=== PATIENT | male | born 1935 | race Caucasian/White ===

== ENCOUNTER 2021-09-17 17:33 | Inpatient (IN) | payer MEDICARE, OTHER ==
[~2021-09-17 17:33] MED LIST: Iopamidol 370 76% 100 ML VIAL ONE
[2021-09-17] MEDS ORDERED: Cefepime 2 GM VIAL ONE (18:01)
[2021-09-17] MEDS ORDERED: Acetaminophen 650 MG Suppository ONE ×2 (18:01→23:46)
[2021-09-17] MEDS ORDERED: Vancomycin 1 GM/200 ML BAG ONE (18:01)
[2021-09-17 18:10] LABS: Actual Bicarbonate (HCO3v) 26 mEq/L (22-28); Analyzer IN Cardio ER; Base Excess 0.1 mEq/L (-2.0 to +3.0); Calcium, Ionized (venous) 1.07 mmol/L (1.16-1.32); Chloride (VBG) 91 mmol/L (98-106); Hemoglobin (Hb) 17.7 g/dL (12.6-17.4); Potassium (VBG) 4.02 mmol/L (3.70-5.30); Sodium 126.1 mmol/L (133-146); pH (venous) 7.38 (7.32-7.43)
[2021-09-17 18:11] LABS: Hemoglobin 10.9 g/dL (14.0-18.0); Mean Corpuscular HGB CONC 34.9 g/dL (32.0-36.0); Mean Corpuscular Hemoglobin 33.4 pg (27.0-31.0); Mean Corpuscular Volume 95.5 fL (78.0-98.0); Mean Platelet Volume 6.3 fL (7.4-10.4); Platelet Count 323 thou/uL (130-400); RBC Distribution Width 12.2 % (11.5-14.5); Red Blood Cell (RBC) Count 3.26 mill/uL (4.70-6.10); White Blood Cell (WBC) Count 9.8 thou/uL (4.8-10.8)
[2021-09-17 18:23] LABS: Acetaminophen Less than 6.0 mcg/mL (10.0-30.0); Alcohol Less than 10 mg/dL (Less than 10); Salicylate Less than 8.0 mg/dL (15.0-30.0)
[2021-09-17 18:24] LABS: ALT (SGPT) 20 U/L (8-55); AST (SGOT) 19 U/L (5-34); Alkaline Phosphatase 86 U/L (40-110); Anion Gap 14 mmol/L (10-20); BUN (Urea Nitrogen) 9 mg/dL (8.4-25.7); Calc. Creatinine Clearance 0 mL/min (70-130); Calcium 9.1 mg/dL (7.8-10.44); Carbon Dioxide 25 mmol/L (23-31); Chloride 92 mmol/L (98-107); Globulin 2.7 g/dL (2.4-3.5); Glucose 106 mg/dL (83-110); Protein, Total 6.7 g/dL (5.8-8.1); Sodium 127 mmol/L (136-145)
[2021-09-17 18:26] LABS: Band 3 % (5-11); Lymphocytes 24 % (21-51); MDiff Complete? YES; Monocytes 6 % (0-10); Neutrophil 60 % (42-75); Platelet Morphology Comment Appears Adequate; Polychromasia SLIGHT = 2-3 cells (100X) (0-2/hpf); Reactive Lymphocytes 7 % (0-10)
[2021-09-17 18:47] LABS: Bacteria/HPF None Seen HPF (None Seen); Bilirubin Negative (Negative); Blood, Urine 1+ (Negative); Clarity Clear (Clear); Glucose, Urine (Dipstick) Normal (Negative); Ketone, Urine Trace mg/dL (Negative); Leukocyte Negative Leu/uL (Negative); Nitrite Negative (Negative); Protein, Urine (Dipstick) 50 mg/dL (Neg-Trace); Squamous Epithelial None Seen HPF (0-3); Urobilinogen Normal mg/dL (Less than 2); WBC/HPF 0-3 HPF (0-3); pH, Urine 5.5 (5.0-9.0)
[2021-09-17 18:50] LABS: Amphetamine Not Detected (NotDetected); Barbiturates Screen Not Detected (NotDetected); Benzodiazepine Screen Detected (NotDetected); Cocaine Metabolite Screen Not Detected (NotDetected); Methadone Not Detected (NotDetected); Methamphetamine Not Detected (NotDetected); Opiate Screen Detected (NotDetected); Oxycodone Screen Not Detected (NotDetected); Phencyclidine (PCP) Not Detected (NotDetected); THC/Cannabinoid Screen Not Detected (NotDetected); Tricyclic Screen Not Detected (NotDetected)
[2021-09-17 20:33] LABS: Color Of CSF Supernatant COLORLESS (Colorless); Tube # 2; Unspun CSF Color COLORLESS (Colorless)
[2021-09-17 20:50] LABS: CSF, Glucose 58 mg/dl (40-70); CSF, Protein 171 mg/dL (15-40)
[2021-09-17] MEDS ORDERED: Ondansetron PF 4 MG/2 ML Vial IVP PRN (20:51)
[2021-09-17] MEDS ORDERED: Acetaminophen 650 MG Suppository PR PRN (20:51)
[2021-09-17] MEDS ORDERED: Ondansetron ODT 4 MG TAB PO PRN (20:51)
[2021-09-17 21:05] LABS: CSF Source CSF; Tube # 4
[2021-09-17 21:06] LABS: Clarity Clear (Clear)
[2021-09-17 21:07] LABS: CSF Source CSF; Clarity Hazy (Clear); Tube # 1
[2021-09-17 21:18] LABS: Cell Count Non Hematic 60 %; Lymphocytes 33 %; Segmented Neutrophils 7 %
[2021-09-17 21:19] LABS: Cell Count Non Hematic 67 %; Lymphocytes 30 %; Segmented Neutrophils 3 %
[2021-09-17 21:22] LABS: Actual Bicarbonate (HCO3a) 25.5 mEq/L (22-28); Analyzer IN Cardio ER; Calcium, Ionized (arterial) 1.18 mmol/L (1.12-1.30); Carboxyhemoglobin (COHb) 0.3 gm% (0.0-3.0); Hemoglobin (Hb) 11.7 g/dL (14.0-18.0); O2 Tension (PaO2), arterial 87.1 mmHg (> 60.0); Potassium - ABG Lab 3.78 mmol/L (3.70-5.30); pH, Arterial 7.37 (7.35-7.45)
[2021-09-17 21:24] LABS: Puncture Site RRA
[2021-09-17] MEDS ORDERED: Pantoprazole 40 MG VIAL IVP SCH (22:00)
[2021-09-17] MEDS: metroNIDAZOLE 500 MG in Premix Bag 1 BAG IVPB SCH (22:27)
[2021-09-17 23:47] LABS: SARS-CoV-2 NAA Rapid Test Not Detected (NotDetected)
[2021-09-18] MEDS: Acetaminophen 325 MG TAB PO PRN ×2 (00:21→18:50)
[2021-09-18] MEDS ORDERED: Magnesium 2 GM/50 ML 2 GM in Premix Bag 1 BAG IVPB SCH ×2 (01:00→05:00)
[2021-09-18] MEDS ORDERED: Magnesium 2 GM/50 ML BAG (IN WATER) ONE ×2 (01:09→04:58)
[2021-09-18 01:43] LABS: Troponin I 0.082 ng/mL (< 0.028)
[2021-09-18 02:27] LABS: ALT (SGPT) 20 U/L (8-55); AST (SGOT) 17 U/L (5-34); Albumin 3.5 g/dL (3.4-4.8); Alkaline Phosphatase 73 U/L (40-110); Anion Gap 15 mmol/L (10-20); BUN (Urea Nitrogen) 9 mg/dL (8.4-25.7); Bilirubin, Total 0.7 mg/dL (0.2-1.2); Calc. Creatinine Clearance 0 mL/min (70-130); Calcium 8.9 mg/dL (7.8-10.44); Carbon Dioxide 21 mmol/L (23-31); Chloride 95 mmol/L (98-107); Globulin 2.6 g/dL (2.4-3.5); Glucose 102 mg/dL (83-110); Magnesium 1.4 mg/dL (1.6-2.6); Potassium 3.9 mmol/L (3.5-5.1); Protein, Total 6.1 g/dL (5.8-8.1); Sodium 127 mmol/L (136-145)
[2021-09-18] MEDS ORDERED: Electrolyte Replacement Protocol 1 EACH FS PRN (05:00)
[2021-09-18] MEDS ORDERED: VANCOMYCIN 1.25 GM/250 ML BAG 1.25 GM in Premix Bag 1 BAG IVPB SCH (06:00)
[2021-09-18 06:14] LABS: #Basophils 0.1 thou/uL (0.0-0.2); #Eosinphils 0.1 thou/uL (0.0-0.7); #Lymphocytes 2.5 thou/uL (1.20-3.40); #Monocytes 1.1 thou/uL (0.11-0.59); #Neutrophils 5.3 thou/uL (1.40-6.50); %Basophils 0.8 % (0.0-1.0); %Eosinophils 0.7 % (0.0-10.0); %Lymphocytes 27.6 % (21.0-51.0); %Monocytes 12.2 % (0.0-10.0); %Neutrophils 58.6 % (42.0-75.0); Hemoglobin 13.3 g/dL (14.0-18.0); Mean Corpuscular HGB CONC 34.3 g/dL (32.0-36.0); Mean Corpuscular Hemoglobin 32.4 pg (27.0-31.0); Mean Corpuscular Volume 94.5 fL (78.0-98.0); Mean Platelet Volume 6.6 fL (7.4-10.4); Platelet Count 271 thou/uL (130-400); RBC Distribution Width 12.3 % (11.5-14.5)
[2021-09-18 06:26] LABS: Anion Gap 19 mmol/L (10-20); BUN (Urea Nitrogen) 9 mg/dL (8.4-25.7); Calc. Creatinine Clearance 102 mL/min (70-130); Calcium 9.2 mg/dL (7.8-10.44); Carbon Dioxide 18 mmol/L (23-31); Chloride 95 mmol/L (98-107); Glucose 88 mg/dL (83-110); Potassium 4.3 mmol/L (3.5-5.1); Sodium 128 mmol/L (136-145)
[2021-09-18 08:58] LABS: Troponin I 0.109 ng/mL (< 0.028)
[2021-09-18] MEDS ORDERED: Pantoprazole 40 MG VIAL IVP SCH (09:00)
[2021-09-18] MEDS: Sodium Chloride 0.9% 1,000 ML IV SCH ×3 (09:17→21:06)
[2021-09-18] MEDS ORDERED: Cefepime 2 GM VIAL ONE (09:21)
[2021-09-18] MEDS: Cefepime 2 GM in Sodium Chloride 0.9% 100 ML IVPB SCH ×2 (09:27→17:33)
[2021-09-18] MEDS ORDERED: Enoxaparin Sodium 40 MG/0.4 ML SYRINGE ONE (09:30)
[2021-09-18] MEDS ORDERED: Pantoprazole 40 MG VIAL ONE (09:30)
[2021-09-18] MEDS: metroNIDAZOLE 500 MG in Premix Bag 1 BAG IVPB SCH ×3 (09:50→21:11)
[2021-09-18] MEDS: Enoxaparin Sodium 40 MG/0.4 ML SYRINGE SC SCH (09:51)
[2021-09-18] MEDS ORDERED: Vancomycin 1 GM/200 ML BAG ONE (11:16)
[2021-09-18] MEDS: Vancomycin 1 GM in Premix Bag 1 BAG IVPB SCH ×2 (11:20→17:33)
[2021-09-18] MEDS ORDERED: Aspirin 325 mg Enteric Coated Tablet PO SCH (11:30)
[2021-09-18 12:26] LABS: Troponin I 0.119 ng/mL (< 0.028)
[2021-09-18 13:56] LABS: Cardiac Risk 3.3 (Less than 4.5)
[2021-09-18 14:33] VITALS: BMI 34.8
[2021-09-18 16:09] LABS: Troponin I 0.109 ng/mL (< 0.028)
[2021-09-18] MEDS ORDERED: Mag-Al Plus 1200 MG/1200 MG/120 MG/30 ML UDCUP PO PRN (17:22)
[2021-09-18] MEDS: Gabapentin 300 MG CAP PO SCH (21:06)
[2021-09-18] MEDS: HYDROcodone/Acetaminophen 5/325 mg Tablet PO PRN (21:07)
[2021-09-18] MEDS ORDERED: Morphine 2 MG/ML VIAL SLOW IVP PRN (22:56)
[2021-09-18] MEDS ORDERED: Morphine 4 MG/ML VIAL SLOW IVP PRN (23:13)
[2021-09-19] MEDS: Sodium Chloride 0.9% 1,000 ML IV SCH ×2 (04:29→15:12)
[2021-09-19] MEDS: Cefepime 2 GM in Sodium Chloride 0.9% 100 ML IVPB SCH (04:30)
[2021-09-19] MEDS: metroNIDAZOLE 500 MG in Premix Bag 1 BAG IVPB SCH ×2 (05:00→16:52)
[2021-09-19 05:07] LABS: Anion Gap 10 mmol/L (10-20); BUN (Urea Nitrogen) 10 mg/dL (8.4-25.7); Calc. Creatinine Clearance 104 mL/min (70-130); Carbon Dioxide 28 mmol/L (23-31); Chloride 96 mmol/L (98-107); Glucose 85 mg/dL (83-110); Magnesium 1.8 mg/dL (1.6-2.6); Potassium 3.9 mmol/L (3.5-5.1); Sodium 130 mmol/L (136-145)
[2021-09-19 05:18] LABS: Vancomycin, Trough 14.6 ug/mL
[2021-09-19] MEDS ORDERED: Magnesium 2 GM/50 ML 2 GM in Premix Bag 1 BAG IVPB SCH (05:30)
[2021-09-19] MEDS: Vancomycin 1 GM in Premix Bag 1 BAG IVPB SCH (06:15)
[2021-09-19] MEDS: HYDROcodone/Acetaminophen 5/325 mg Tablet PO PRN (06:29)
[2021-09-19] MEDS: Gabapentin 300 MG CAP PO SCH ×2 (09:06→21:40)
[2021-09-19] MEDS: Amlodipine 5 MG TAB PO SCH (09:08)
[2021-09-19] MEDS: Saccharomyces boulardii 250 MG CAP PO SCH (09:08)
[2021-09-19] MEDS: Tamsulosin HCl 0.4 MG CAP PO SCH (09:08)
[2021-09-19] MEDS: Allopurinol 300 MG TAB PO SCH (09:08)
[2021-09-19] MEDS: Enoxaparin Sodium 40 MG/0.4 ML SYRINGE SC SCH (09:09)
[2021-09-19] MEDS: Aspirin 325 mg Enteric Coated Tablet PO SCH (09:09)
[2021-09-19] MEDS ORDERED: OLANZapine 10 MG VIAL IM SCH (21:45)
[2021-09-20] MEDS ORDERED: Ziprasidone 20 MG VIAL IM SCH (01:00)
[2021-09-20] MEDS: Sodium Chloride 0.9% 1,000 ML IV SCH ×2 (02:26→18:30)
[2021-09-20 07:07] LABS: Anion Gap 14 mmol/L (10-20); BUN (Urea Nitrogen) 9 mg/dL (8.4-25.7); Calc. Creatinine Clearance 115 mL/min (70-130); Calcium 9.6 mg/dL (7.8-10.44); Carbon Dioxide 24 mmol/L (23-31); Chloride 94 mmol/L (98-107); Glucose 120 mg/dL (83-110); Potassium 3.4 mmol/L (3.5-5.1); Sodium 129 mmol/L (136-145)
[2021-09-20] MEDS ORDERED: Potassium Chloride 20 MEQ TAB PO SCH (08:00)
[2021-09-20] MEDS ORDERED: Iopamidol 370 76% 100 ML VIAL ONE (09:36)
[2021-09-20] MEDS: Gabapentin 300 MG CAP PO SCH ×2 (09:46→21:29)
[2021-09-20] MEDS: Aspirin 325 mg Enteric Coated Tablet PO SCH (09:46)
[2021-09-20] MEDS: Tamsulosin HCl 0.4 MG CAP PO SCH (09:46)
[2021-09-20] MEDS: Allopurinol 300 MG TAB PO SCH (09:46)
[2021-09-20] MEDS: Saccharomyces boulardii 250 MG CAP PO SCH (09:47)
[2021-09-20] MEDS: Amlodipine 5 MG TAB PO SCH (09:47)
[2021-09-20] MEDS: Enoxaparin Sodium 40 MG/0.4 ML SYRINGE SC SCH (10:41)
[2021-09-20] MEDS ORDERED: Sodium Chloride 0.9% 1,000 ML IV SCH (17:45)
[2021-09-20 18:29] LABS: Bacteria/HPF None Seen HPF (None Seen); Bilirubin Negative (Negative); Blood, Urine 3+ (Negative); Clarity Clear (Clear); Glucose, Urine (Dipstick) Normal (Negative); Ketone, Urine 10 mg/dL (Negative); Leukocyte Negative Leu/uL (Negative); Nitrite Negative (Negative); Protein, Urine (Dipstick) 30 mg/dL (Neg-Trace); RBC/HPF Greater than 50 HPF (0-3); Squamous Epithelial None Seen HPF (0-3); Urobilinogen Normal mg/dL (Less than 2); pH, Urine 6.5 (5.0-9.0)
[2021-09-20] MEDS ORDERED: Atorvastatin Calcium 20 MG TAB PO SCH (21:00)
[2021-09-20 21:18] LABS: Actual Bicarbonate (HCO3a) 30.1 mEq/L (22-28); Base Excess (BEa) 6.1 mEq/L (-2.0 to +3.0); CO2 Tension 41.6 mmHg (35.0-45.0); Calcium, Ionized (arterial) 1.19 mmol/L (1.12-1.30); Carboxyhemoglobin (COHb) 0.6 gm% (0.0-3.0); Hemoglobin (Hb) 11.5 g/dL (14.0-18.0); O2 Tension (PaO2), arterial 67.6 mmHg (> 60.0); Potassium - ABG Lab 3.78 mmol/L (3.70-5.30); pH, Arterial 7.48 (7.35-7.45)
[2021-09-20 21:20] LABS: Puncture Site RRA
[2021-09-20 22:41] LABS: Calcium 9.1 mg/dL (7.8-10.44); Chloride 103 mmol/L (98-107); Glucose 78 mg/dL (83-110); Potassium 4.9 mmol/L (3.5-5.1); Sodium 134 mmol/L (136-145)
[2021-09-20 22:43] LABS: Anion Gap 21 mmol/L (10-20); Carbon Dioxide 15 mmol/L (23-31)
[2021-09-20 22:45] LABS: Calc. Creatinine Clearance 109 mL/min (70-130)
[2021-09-20 22:46] LABS: BUN (Urea Nitrogen) 10 mg/dL (8.4-25.7)
[2021-09-21] MEDS ORDERED: hydrALAZINE 20 MG/ML VIAL SLOW IVP PRN (04:45)
[2021-09-21 05:37] LABS: #Eosinphils 0.3 thou/uL (0.0-0.7); #Lymphocytes 1.4 thou/uL (1.20-3.40); #Monocytes 0.9 thou/uL (0.11-0.59); #Neutrophils 4.6 thou/uL (1.40-6.50); %Basophils 0.6 % (0.0-1.0); %Eosinophils 3.6 % (0.0-10.0); %Lymphocytes 19.2 % (21.0-51.0); %Monocytes 11.9 % (0.0-10.0); %Neutrophils 64.7 % (42.0-75.0); Hemoglobin 11.6 g/dL (14.0-18.0); Mean Corpuscular HGB CONC 32.1 g/dL (32.0-36.0); Mean Corpuscular Hemoglobin 30.6 pg (27.0-31.0); Mean Corpuscular Volume 95.3 fL (78.0-98.0); Platelet Count 353 thou/uL (130-400); RBC Distribution Width 12.4 % (11.5-14.5); Red Blood Cell (RBC) Count 3.79 mill/uL (4.70-6.10); White Blood Cell (WBC) Count 7.2 thou/uL (4.8-10.8)
[2021-09-21 05:54] LABS: Anion Gap 11 mmol/L (10-20); BUN (Urea Nitrogen) 10 mg/dL (8.4-25.7); Calc. Creatinine Clearance 111 mL/min (70-130); Carbon Dioxide 27 mmol/L (23-31); Chloride 100 mmol/L (98-107); Glucose 105 mg/dL (83-110); Potassium 3.6 mmol/L (3.5-5.1); Sodium 134 mmol/L (136-145)
[2021-09-21] MEDS: Saccharomyces boulardii 250 MG CAP PO SCH (07:39)
[2021-09-21] MEDS: Tamsulosin HCl 0.4 MG CAP PO SCH (07:39)
[2021-09-21] MEDS: Amlodipine 5 MG TAB PO SCH (07:40)
[2021-09-21] MEDS: Allopurinol 300 MG TAB PO SCH (07:40)
[2021-09-21] MEDS: Aspirin 325 mg Enteric Coated Tablet PO SCH (07:40)
[2021-09-21] MEDS: Enoxaparin Sodium 40 MG/0.4 ML SYRINGE SC SCH (07:40)
[2021-09-21] MEDS: Gabapentin 300 MG CAP PO SCH (07:41)
[2021-09-21] MEDS ORDERED: Losartan 25 MG TAB PO SCH (09:00)
[2021-09-21 15:11] VITALS: BP 155/78; TEMP 98.7
== END 2021-09-21 16:07 | disposition home health service (06) | DRG 871 ==
LOC: ERS 17:33 → ERHOLD 20:16 → NEURO 09-18 12:59
PROVIDERS: ADMIT Student in an Organized Health Care Education/Training Program; ATTEND Internal Medicine
PROC: 009U3ZX Drainage of Spinal Canal, Percutaneous Approach, Diagnostic (ICD-10-PCS; principal; 2021-09-17)
DX: A41.9 Sepsis, unspecified organism (principal); G93.41 Metabolic encephalopathy; E87.1 Hypo-osmolality and hyponatremia; N39.0 Urinary tract infection, site not specified; Z20.822 Contact with and (suspected) exposure to COVID-19; M10.9 Gout, unspecified; K21.9 Gastro-esophageal reflux disease without esophagitis; I10 Essential (primary) hypertension; N40.0 Benign prostatic hyperplasia without lower urinary tract symptoms; E78.5 Hyperlipidemia, unspecified; I65.29 Occlusion and stenosis of unspecified carotid artery; G89.29 Other chronic pain; M54.9 Dorsalgia, unspecified; G62.9 Polyneuropathy, unspecified; Z96.653 Presence of artificial knee joint, bilateral; Z96.612 Presence of left artificial shoulder joint; T40.2X1A Poisoning by other opioids, accidental (unintentional), initial encounter; E78.00 Pure hypercholesterolemia, unspecified; E83.42 Hypomagnesemia; E66.9 Obesity, unspecified; N40.1 Benign prostatic hyperplasia with lower urinary tract symptoms; R33.8 Other retention of urine; Z87.440 Personal history of urinary (tract) infections; Z79.899 Other long term (current) drug therapy; Z79.82 Long term (current) use of aspirin; Z68.34 Body mass index [BMI] 34.0-34.9, adult
CPT/HCPCS: 36415; 36416; 36600; 51701; 62270; 70450; 70498; 70551; 71045; 74177; 80048; 80053; 80061; 80202; 80306; 80307; 81001; 81003; 81015; 82805; 82945; 83605; 83735; 83930; 83935; 84157; 84300; 84443; 84484; 85025; 85060; 87040; 87070; 87086; 87205; 88184; 89051; 93005; 93010; 93306; 93880; 95816; 95819; 95957; 96365; 96375; C9113; J0692; J1650; J2270; J2358; J3370; J3475; J3486; J3490; J7050; Q9967; U0002

== ENCOUNTER 2022-02-27 10:40 | Outpatient (CLI) | payer MEDICARE, OTHER ==
[2022-02-27 12:13] LABS: Hemoglobin 12.1 g/dL (13.5-17.5); Mean Corpuscular HGB CONC 32.8 g/dL (32.0-36.0); Mean Corpuscular Volume 88.5 fl (81.2-95.1); Platelet Count 303 10x3/uL (150-450); RBC Distribution Width 13.5 % (11.5-14.5); Red Blood Cell (RBC) Count 4.17 10x6/uL (4.32-5.72); White Blood Cell (WBC) Count 7.7 10x3/uL (3.5-10.5)
[2022-02-27 12:34] LABS: PTT 28.9 sec (22.0-33.0)
== END 2022-02-27 10:41 | disposition home or self-care (01) ==
LOC: LABBT 10:40
PROVIDERS: ATTEND Neurological Surgery
DX: Z01.818 Encounter for other preprocedural examination (principal); G54.2 Cervical root disorders, not elsewhere classified; M48.061 Spinal stenosis, lumbar region without neurogenic claudication; Z20.822 Contact with and (suspected) exposure to COVID-19
CPT/HCPCS: 85027; 85610; 85730; 87811; 93005; 93010

== ENCOUNTER 2022-03-02 05:39 | Observation (INO) | payer MEDICARE, OTHER ==
[2022-03-02] MEDS ORDERED: fentaNYL Citrate/PF 100 MCG/2 ML SYRINGE ONE ×4 (06:12→15:34)
[2022-03-02] MEDS ORDERED: Dexmedetomidine 200 MCG/2 ML VIAL ONE (06:13)
[2022-03-02] MEDS ORDERED: Ketamine 50 MG/ML (10ML VIAL) ONE (06:13)
[2022-03-02] MEDS ORDERED: Albumin 5% 500 ML ONE (06:13)
[2022-03-02] MEDS ORDERED: Bupivacaine PF 0.5% 30 ML VIAL ONE (06:17)
[2022-03-02] MEDS ORDERED: EPINEPHrine 1 MG/ML AMP ONE (06:17)
[2022-03-02] MEDS ORDERED: Thrombin 5000 UNITS/5 ML VIAL ONE (06:17)
[2022-03-02] MEDS ORDERED: Cyclobenzaprine 10 MG TAB PO PRN (06:39)
[2022-03-02] MEDS ORDERED: Acetaminophen/Codeine 30-300mg Tablet PO PRN (06:39)
[2022-03-02] MEDS ORDERED: diphenhydrAMINE 50 MG/ML VIAL IVP PRN (06:39)
[2022-03-02] MEDS ORDERED: Ondansetron PF 4 MG/2 ML Vial IVP PRN (06:39)
[2022-03-02] MEDS ORDERED: Acetaminophen 325 MG TAB PO PRN (06:39)
[2022-03-02] MEDS ORDERED: Morphine 2 MG/ML VIAL SLOW IVP PRN (06:39)
[2022-03-02] MEDS ORDERED: Milk Of Magnesia 30 ML UDCUP PO PRN (06:39)
[2022-03-02] MEDS ORDERED: HYDROcodone/Acetaminophen 10/325 mg Tablet PO PRN (06:39)
[2022-03-02] MEDS ORDERED: ceFAZolin 2 GM/Dextrose 50 ML 2 GM in Premix Bag 1 BAG IVPB SCH (06:45)
[2022-03-02] MEDS ORDERED: CEFAZOLIN 2 GM VIAL ONE (06:50)
[2022-03-02] MEDS ORDERED: Sodium Chloride 0.9% 100 ML ONE (06:50)
[2022-03-02] MEDS ORDERED: Phenylephrine 10 MG/ML VIAL ONE (07:13)
[2022-03-02] MEDS ORDERED: Glycopyrrolate 0.2 MG/ML 5 ML SYRINGE ONE (07:13)
[2022-03-02] MEDS ORDERED: Rocuronium Bromide 10 MG/ML (10ML VIAL) ONE (07:13)
[2022-03-02] MEDS ORDERED: Lidocaine 1% PF 5 ML VIAL ONE (07:13)
[2022-03-02] MEDS ORDERED: Dexamethasone 20 MG/5 ML VIAL ONE (07:13)
[2022-03-02] MEDS ORDERED: Vecuronium 10 MG VIAL ONE ×2 (07:13→09:23)
[2022-03-02] MEDS ORDERED: PROPOFOL 200 MG/20 ML VIAL ONE (07:13)
[2022-03-02] MEDS ORDERED: Ondansetron PF 4 MG/2 ML Vial ONE (07:13)
[2022-03-02] MEDS ORDERED: ePHEDrine 50 MG/ML VIAL ONE (07:13)
[2022-03-02] MEDS ORDERED: Metoclopramide HCl 10 MG/2 ML VIAL ONE (07:13)
[2022-03-02] MEDS ORDERED: Gabapentin 300 MG CAP PO SCH ×2 (09:00→21:00)
[2022-03-02] MEDS ORDERED: Non-Formulary Item 1 EACH (Losartan Potassium [Cozaar] 50 MG Tab) PO SCH (09:00)
[2022-03-02] MEDS ORDERED: Amlodipine 5 MG TAB PO SCH (09:00)
[2022-03-02] MEDS ORDERED: Non-Formulary Item 1 EACH (Esomeprazole Magnesium [Nexium] 20 MG Capsule.Dr) PO SCH (09:00)
[2022-03-02] MEDS ORDERED: Neomycin-Polymyxin 1 ML AMP ONE (12:25)
[2022-03-02] MEDS ORDERED: Promethazine HCl 25 MG/ML VIAL IM PRN (14:59)
[2022-03-02] MEDS ORDERED: Promethazine HCl 25 MG/ML VIAL IVPB PRN (14:59)
[2022-03-02] MEDS ORDERED: Morphine Sulfate 2 MG/ML SYRINGE SLOW IVP PRN (14:59)
[2022-03-02] MEDS ORDERED: Ondansetron HCl/PF 4 MG/2 ML Vial IVP PRN (14:59)
[2022-03-02] MEDS ORDERED: HYDROmorphone 2 MG/ML VIAL SLOW IVP PRN (14:59)
[2022-03-02] MEDS ORDERED: PACU-Morphine 4MG/ML VIAL SLOW IVP PRN (14:59)
[2022-03-02] MEDS ORDERED: CEFAZOLIN 1 GM VIAL ONE (15:12)
[2022-03-02] MEDS ORDERED: Bacitracin Zinc Ointment 30 gm TUBE ONE (15:16)
[2022-03-02 17:18] VITALS: BMI 34.9
[2022-03-02] MEDS: Sodium Chloride 0.9% 1,000 ML IV SCH ×2 (18:13→22:13)
[2022-03-02] MEDS: Gabapentin 300 MG CAP PO SCH ×3 (19:37→22:29)
[2022-03-02] MEDS: Amlodipine 10 MG TAB PO SCH (19:37)
[2022-03-02] MEDS: Losartan 25 MG TAB PO SCH (19:38)
[2022-03-02] MEDS: CEFAZOLIN 2 GM in Sodium Chloride 0.9% 100 ML IVPB SCH ×2 (19:39→22:29)
[2022-03-02] MEDS: Mag-Al 1200 mg/1200 mg/30 ML UDCUP PO PRN (20:41)
[2022-03-02] MEDS ORDERED: Atorvastatin Calcium 20 MG TAB PO SCH (21:00)
[2022-03-02] MEDS ORDERED: Simvastatin 40 MG TAB PO SCH (21:00)
[2022-03-02] MEDS: HYDROcodone/Acetaminophen 7.5/325 mg Tablet PO PRN (22:32)
[2022-03-03] MEDS: HYDROcodone/Acetaminophen 7.5/325 mg Tablet PO PRN ×3 (03:48→17:55)
[2022-03-03] MEDS ORDERED: Tamsulosin HCl 0.4 MG CAP PO SCH (06:00)
[2022-03-03] MEDS: Losartan 25 MG TAB PO SCH (08:36)
[2022-03-03] MEDS: Gabapentin 300 MG CAP PO SCH ×2 (08:37→14:52)
[2022-03-03] MEDS: Amlodipine 10 MG TAB PO SCH (08:39)
[2022-03-03] MEDS: Mag-Al 1200 mg/1200 mg/30 ML UDCUP PO PRN (10:46)
[2022-03-03] MEDS: Sodium Chloride 0.9% 1,000 ML IV SCH (11:34)
[2022-03-03] MEDS ORDERED: CEFAZOLIN 2 GM in Sodium Chloride 0.9% 100 ML IVPB SCH (14:00)
[2022-03-03] MEDS ORDERED: Bisacodyl 10 MG SUPP PR SCH (15:30)
[2022-03-03 16:20] VITALS: BP 129/70; TEMP 97.9
[2022-03-07 11:03] LABS: Actual Bicarbonate (HCO3a) 23.1 mEq/L (22-28); Analyzer IN Cardio OR; CO2 Tension 36.3 mmHg (35.0-45.0); Carboxyhemoglobin (COHb) 0.5 gm% (0.0-3.0); Hemoglobin (Hb) 11.5 g/dL (14.0-18.0); O2 Tension (PaO2), arterial 193.4 mmHg (> 60.0); Potassium - ABG Lab 3.72 mmol/L (3.70-5.30); Puncture Site Arterial Line; pH, Arterial 7.42 (7.35-7.45)
== END 2022-03-03 18:45 | disposition home or self-care (01) ==
LOC: SDC 05:39 → SURG A 17:08
PROVIDERS: ADMIT Neurological Surgery; ATTEND Neurological Surgery
PROC: 01NB0ZZ Release Lumbar Nerve, Open Approach (ICD-10-PCS; principal; 2022-03-02)
PROC: 0SG00AJ Fusion of Lumbar Vertebral Joint with Interbody Fusion Device, Posterior Approach, Anterior Column, Open Approach (ICD-10-PCS; 2022-03-02)
PROC: 0SG30AJ Fusion of Lumbosacral Joint with Interbody Fusion Device, Posterior Approach, Anterior Column, Open Approach (ICD-10-PCS; 2022-03-02)
DX: M48.062 Spinal stenosis, lumbar region with neurogenic claudication (principal); M48.07 Spinal stenosis, lumbosacral region; M43.16 Spondylolisthesis, lumbar region; M43.17 Spondylolisthesis, lumbosacral region; E78.00 Pure hypercholesterolemia, unspecified; M10.9 Gout, unspecified; I10 Essential (primary) hypertension; Z79.82 Long term (current) use of aspirin; Z79.899 Other long term (current) drug therapy
CPT/HCPCS: 20930; 20936; 22633; 22634; 22842; 22853 ×2; 63047; 63048; 76000; 97110; 97116 ×2; 97530 ×2; C1713 ×2; C1768; C1776 ×2; J2270; P9045; 82805; J0171; J0690; J1100; J2370; J2405; J2704; J2710; J2765; J3370; J3490; J7050; S0020

== ENCOUNTER 2022-03-05 21:09 | Emergency (ER) | payer MEDICARE, OTHER ==
[2022-03-05 22:10] LABS: Bacteria/HPF 1+ HPF (None Seen); Bilirubin Negative (Negative); Blood, Urine Trace (Negative); Clarity Turbid (Clear); Glucose, Urine (Dipstick) Normal (Negative); Ketone, Urine Negative (Negative); Leukocyte 75 Leu/uL (Negative); Nitrite Negative (Negative); Protein, Urine (Dipstick) 50 mg/dL (Neg-Trace); Specific Gravity, Urine 1.022 (1.002-1.036); Squamous Epithelial 0-3 HPF (0-3); Urobilinogen Normal mg/dL (Less than 2); pH, Urine 5.5 (5.0-9.0)
[2022-03-05 22:22] LABS: ALT (SGPT) 20 U/L (8-55); AST (SGOT) 48 U/L (5-34); Albumin 3.4 g/dL (3.4-4.8); Alkaline Phosphatase 86 U/L (40-110); Anion Gap 16 mmol/L (10-20); BUN (Urea Nitrogen) 24 mg/dL (8.4-25.7); Bilirubin, Total 1.4 mg/dL (0.2-1.2); Calc. Creatinine Clearance 0 mL/min (70-130); Calcium 8.3 mg/dL (7.8-10.44); Carbon Dioxide 19 mmol/L (23-31); Chloride 95 mmol/L (98-107); Estimated GFR 50; Globulin 3.3 g/dL (2.4-3.5); Glucose 119 mg/dL (83-110); Lipase 12 U/L (8-78); Protein, Total 6.7 g/dL (5.8-8.1); Sodium 125 mmol/L (136-145)
[2022-03-05 22:49] LABS: #Basophils 0.1 thou/uL (0.0-0.2); #Eosinphils 0.1 thou/uL (0.0-0.7); #Lymphocytes 4.1 thou/uL (1.20-3.40); #Monocytes 2.3 thou/uL (0.11-0.59); #Neutrophils 9.7 thou/uL (1.40-6.50); %Basophils 0.5 % (0.0-1.0); %Eosinophils 0.7 % (0.0-10.0); %Lymphocytes 25.2 % (21.0-51.0); %Monocytes 13.9 % (0.0-10.0); %Neutrophils 59.7 % (42.0-75.0); Hemoglobin 8.4 g/dL (14.0-18.0); Mean Corpuscular HGB CONC 32.9 g/dL (32.0-36.0); Mean Corpuscular Hemoglobin 30.8 pg (27.0-31.0); Mean Corpuscular Volume 93.6 fL (78.0-98.0); Mean Platelet Volume 7.7 fL (7.4-10.4); Platelet Count 272 thou/uL (130-400); RBC Distribution Width 12.8 % (11.5-14.5); Red Blood Cell (RBC) Count 2.73 mill/uL (4.70-6.10); White Blood Cell (WBC) Count 16.2 thou/uL (4.8-10.8)
== END 2022-03-05 23:51 | disposition home or self-care (01) ==
LOC: ERS 21:09
DX: E87.1 Hypo-osmolality and hyponatremia (principal); N39.0 Urinary tract infection, site not specified; K21.9 Gastro-esophageal reflux disease without esophagitis; E78.00 Pure hypercholesterolemia, unspecified; I10 Essential (primary) hypertension; N40.0 Benign prostatic hyperplasia without lower urinary tract symptoms; Z79.899 Other long term (current) drug therapy
CPT/HCPCS: 36415; 70450; 71045; 80053; 81003; 81015; 83605; 83690; 83880; 84484; 85025; 87086; 93005

== ENCOUNTER 2022-07-05 10:30 | Day surgery (SDC) | payer MEDICARE, OTHER ==
[2022-07-04 15:35] VITALS: BMI 32.5
[2022-07-05] MEDS ORDERED: Neomycin-Polymyxin 1 ML AMP ONE (11:26)
[2022-07-05] MEDS ORDERED: Thrombin 5000 UNITS/5 ML VIAL ONE (11:26)
[2022-07-05] MEDS ORDERED: Sodium Chloride 0.9% 100 ML ONE (11:33)
[2022-07-05] MEDS ORDERED: CEFAZOLIN 2 GM VIAL ONE (11:33)
[2022-07-05] MEDS ORDERED: fentaNYL PF 100 MCG/2 ML SYRINGE ONE (11:44)
[2022-07-05 12:23] LABS: PTT 38.3 sec (22.9-36.1); Prothrombin Time 13.5 sec (12.0-14.7)
[2022-07-05] MEDS ORDERED: Rocuronium Bromide 10 MG/ML (10ML VIAL) ONE (12:28)
[2022-07-05] MEDS ORDERED: Glycopyrrolate 0.2 MG/ML 5 ML SYRINGE ONE (12:28)
[2022-07-05] MEDS ORDERED: Dexamethasone 20 MG/5 ML VIAL ONE (12:28)
[2022-07-05] MEDS ORDERED: PROPOFOL 200 MG/20 ML VIAL ONE (12:28)
[2022-07-05] MEDS ORDERED: NEOSTIGMINE 3 MG/3 ML SYR 3 MG/3 ML SYRINGE ONE (12:28)
[2022-07-05] MEDS ORDERED: Ondansetron PF 4 MG/2 ML Vial ONE ×2 (12:28→15:40)
[2022-07-05] MEDS ORDERED: Tamsulosin HCl 0.4 MG CAP ONE (14:58)
[2022-07-05] MEDS ORDERED: FENTANYL 50 MCG/ML 1 ML VIAL ONE (15:06)
[2022-07-05] MEDS ORDERED: Morphine 4 MG/ML VIAL SLOW IVP PRN ×2 (16:21→16:30)
[2022-07-05] MEDS ORDERED: Prochlorperazine 10 MG/2 ML VIAL IM PRN (16:30)
[2022-07-05] MEDS ORDERED: diphenhydrAMINE 50 MG/ML VIAL IVP PRN (16:30)
[2022-07-05] MEDS ORDERED: HYDROcodone/Acetaminophen 7.5/325 mg Tablet PO PRN ×2 (16:30)
[2022-07-05] MEDS ORDERED: Morphine 2 MG/ML VIAL SLOW IVP PRN (16:30)
[2022-07-05] MEDS ORDERED: Sodium Chloride 0.9% 1,000 ML IV SCH (16:30)
[2022-07-05] MEDS ORDERED: Milk Of Magnesia 30 ML UDCUP PO PRN (16:30)
[2022-07-05] MEDS ORDERED: Ondansetron PF 4 MG/2 ML Vial IVP PRN (16:30)
[2022-07-05] MEDS ORDERED: diphenhydrAMINE 25 MG CAP PO PRN (16:30)
[2022-07-05] MEDS ORDERED: Mag-Al 1200 mg/1200 mg/30 ML UDCUP PO PRN (16:30)
[2022-07-06] MEDS ORDERED: Tamsulosin HCl 0.4 MG CAP PO SCH (06:00)
== END 2022-07-05 16:50 | disposition home or self-care (01) ==
LOC: SDC 10:30
PROVIDERS: ATTEND Neurological Surgery
PROC: 0RG10A0 Fusion of Cervical Vertebral Joint with Interbody Fusion Device, Anterior Approach, Anterior Column, Open Approach (ICD-10-PCS; principal; 2022-07-05)
DX: M48.02 Spinal stenosis, cervical region (principal); M50.021 Cervical disc disorder at C4-C5 level with myelopathy; M43.12 Spondylolisthesis, cervical region; E78.00 Pure hypercholesterolemia, unspecified; M10.9 Gout, unspecified; I10 Essential (primary) hypertension; Z79.899 Other long term (current) drug therapy; Z96.612 Presence of left artificial shoulder joint; Z96.653 Presence of artificial knee joint, bilateral; Z98.1 Arthrodesis status
CPT/HCPCS: 20930; 20936; 22551; 22845; 22853; 85610; 85730; J3010; C1713; J1100; J2405; J2704; J3490

== ENCOUNTER 2022-07-28 20:49 | Emergency (ER) | payer MEDICARE, OTHER ==
[~2022-07-28 20:49] MED LIST changes: -Iopamidol 370 76% 100 ML VIAL ONE; +Iopamidol-370 76% 500 ML 1 ML ONE
[2022-07-28 21:27] LABS: Bacteria/HPF None Seen HPF (None Seen); Bilirubin Negative (Negative); Blood, Urine Negative (Negative); Clarity Clear (Clear); Glucose, Urine (Dipstick) Normal (Negative); Ketone, Urine Negative (Negative); Leukocyte Negative Leu/uL (Negative); Nitrite Negative (Negative); Protein, Urine (Dipstick) 30 mg/dL (Neg-Trace); Specific Gravity, Urine 1.025 (1.002-1.036); Squamous Epithelial None Seen HPF (0-3); Urobilinogen Normal mg/dL (Less than 2); WBC/HPF 0-3 HPF (0-3)
[2022-07-28] MEDS ORDERED: cefTRIAXone\\ROCEPHIN 2 GM VIAL ONE (21:36)
[2022-07-28 21:46] LABS: #Lymphocytes 3.7 thou/uL (1.20-3.40); #Monocytes 0.9 thou/uL (0.11-0.59); #Neutrophils 5.4 thou/uL (1.40-6.50); %Basophils 0.2 % (0.0-1.0); %Eosinophils 0.3 % (0.0-10.0); %Monocytes 8.8 % (0.0-10.0); %Neutrophils 53.8 % (42.0-75.0); Mean Corpuscular HGB CONC 33.4 g/dL (32.0-36.0); Mean Corpuscular Hemoglobin 28.9 pg (27.0-31.0); Mean Corpuscular Volume 86.5 fl (78.0-98.0); Mean Platelet Volume 7.5 fL (7.4-10.4); Platelet Count 294 10x3/uL (130-400); RBC Distribution Width 14.2 % (11.5-14.5); Red Blood Cell (RBC) Count 3.82 mill/uL (4.70-6.10)
[2022-07-28 22:00] LABS: SARS-CoV-2 NAA Rapid Test Not Detected (NotDetected)
[2022-07-28 22:06] LABS: ALT (SGPT) 8 U/L (8-55); AST (SGOT) 14 U/L (5-34); Albumin 3.4 g/dL (3.4-4.8); Alkaline Phosphatase 88 U/L (40-110); Anion Gap 14 mmol/L (10-20); BUN (Urea Nitrogen) 10 mg/dL (8.4-25.7); Bilirubin, Total 1.3 mg/dL (0.2-1.2); Calc. Creatinine Clearance 0 mL/min (70-130); Calcium 8.6 mg/dL (7.8-10.44); Carbon Dioxide 22 mmol/L (23-31); Chloride 101 mmol/L (98-107); Estimated GFR 83; Globulin 2.9 g/dL (2.4-3.5); Glucose 99 mg/dL (83-110); Lipase 22 U/L (8-78); Magnesium 1.5 mg/dL (1.6-2.6); Potassium 3.7 mmol/L (3.5-5.1); Protein, Total 6.3 g/dL (5.8-8.1); Sodium 133 mmol/L (136-145)
[2022-07-28] MEDS ORDERED: Vancomycin 1 GM/200 ML (FROZEN) BAG ONE (22:19)
[2022-07-28] MEDS ORDERED: Magnesium 2 GM/50 ML BAG (IN WATER) ONE (22:19)
[2022-07-28] MEDS ORDERED: Midazolam HCl 2 mg/2 ml Vial ONE (22:42)
== END 2022-07-29 00:49 | disposition home or self-care (01) ==
LOC: ERS 20:49
DX: R41.82 Altered mental status, unspecified (principal); K21.9 Gastro-esophageal reflux disease without esophagitis; I10 Essential (primary) hypertension; E78.00 Pure hypercholesterolemia, unspecified
CPT/HCPCS: 0240U; 70450; 70491; 71045; 82962; 83605; 83690; 83735; 84484; 87040; 87086; 93005; J3370; 36415; 36416; 51701; 80053; 81003; 81015; 84443; 85025; 96374; 96375; J0696; J2250; J3475; Q9967

== ENCOUNTER 2022-11-03 10:22 | Emergency (ER) | payer MEDICARE, OTHER ==
[2022-11-03 10:58] LABS: #Eosinphils 0.1 thou/uL (0.0-0.7); #Lymphocytes 3.4 thou/uL (1.20-3.40); #Monocytes 0.7 thou/uL (0.11-0.59); #Neutrophils 3.7 thou/uL (1.40-6.50); %Basophils 0.1 % (0.0-1.0); %Eosinophils 1.7 % (0.0-10.0); %Lymphocytes 43.2 % (21.0-51.0); %Monocytes 8.5 % (0.0-10.0); %Neutrophils 46.5 % (42.0-75.0); Mean Corpuscular HGB CONC 33.1 g/dL (32.0-36.0); Mean Corpuscular Hemoglobin 29.8 pg (27.0-31.0); Mean Platelet Volume 7.2 fL (7.4-10.4); Platelet Count 263 10x3/uL (130-400); RBC Distribution Width 14.2 % (11.5-14.5); Red Blood Cell (RBC) Count 4.05 mill/uL (4.70-6.10); White Blood Cell (WBC) Count 7.9 10x3/uL (4.8-10.8)
[2022-11-03 11:19] LABS: ALT (SGPT) 10 U/L (8-55); AST (SGOT) 16 U/L (5-34); Alkaline Phosphatase 99 U/L (40-110); Anion Gap 13 mmol/L (10-20); BUN (Urea Nitrogen) 9 mg/dL (8.4-25.7); Bilirubin, Total 0.8 mg/dL (0.2-1.2); Calc. Creatinine Clearance 0 mL/min (70-130); Calcium 9.6 mg/dL (7.8-10.44); Carbon Dioxide 26 mmol/L (23-31); Chloride 104 mmol/L (98-107); Estimated GFR 75; Globulin 3.3 g/dL (2.4-3.5); Glucose 112 mg/dL (83-110); Lipase 39 U/L (8-78); Potassium 4.6 mmol/L (3.5-5.1); Protein, Total 7.3 g/dL (5.8-8.1); Sodium 138 mmol/L (136-145)
[2022-11-03] MEDS ORDERED: Iopamidol-370 76% 500 ML MDV (1 ML CHARGE) ONE (14:47)
== END 2022-11-03 14:56 | disposition home or self-care (01) ==
LOC: ERS 10:22
DX: M62.08 Separation of muscle (nontraumatic), other site (principal)
CPT/HCPCS: 36415; 74177; 80053; 83690; 84484; 85025; 93005; Q9967